=== PATIENT | female | born 1990 | race Two or more races ===

== ENCOUNTER 2019-11-28 07:40 | Observation (INO) | payer MEDICAID ==
[~2019-11-28] VITALS: Ht 170.2 cm; Wt 68.5 kg
[2019-11-28] MEDS ORDERED: TERBUTALINE SULFATE 1 MG/ML 1ML VIAL SC PRN (09:00)
== END 2019-11-28 10:10 | disposition home or self-care (01) | DRG 566 ==
LOC: LDRP 07:40
PROVIDERS: ADMIT Obstetrics & Gynecology; ATTEND Obstetrics & Gynecology
DX: O26.893 Other specified pregnancy related conditions, third trimester (principal); R10.9 Unspecified abdominal pain; Z3A.35 35 weeks gestation of pregnancy
CPT/HCPCS: 59025; 81002; 96372; G0378; J3105